=== PATIENT | female | born 1970 | race Caucasian/White ===

== ENCOUNTER 2019-02-07 15:18 | Outpatient (REF) | payer MEDICAID, SELFPAY ==
[2019-02-07 19:11] LABS: TSH (W/Ref FT4) 5.12 uIU/mL (0.358-3.74)
[2019-02-07 20:02] LABS: FREE T4 1.06 ng/dL (0.76-1.46)
== END 2019-02-07 15:38 ==
LOC: NCHCN 15:18
PROVIDERS: PCP Nurse Practitioner Family; Visit Provider Nurse Practitioner Family
DX: E03.9 Hypothyroidism, unspecified (principal)
CPT/HCPCS: 84439; 84443

== ENCOUNTER 2019-02-16 00:22 | Outpatient (CLI) | payer MEDICAID, SELFPAY ==
--- NOTE | 2019-02-16 11:27 | DI.US_ITS ---
SYMPTOMS/DIAGNOSIS: ENLARGED THYROID, E04.9, ? GOITER OR MALIGNANCY THYROID ULTRASOUND: The right thyroid lobe measures 4.7 x 2.3 x 2.2 cm. The isthmus measures 4.6 mm in thickness. The left thyroid lobe measures 5.7 x 3.0 x 3.5 cm. In the right thyroid lobe adjacent to the isthmus, there is a 9 x 9 x 6 mm solid avascular nodule. In the left thyroid lobe, there is a 3.7 x 2.9 x 2.6 cm hyperechoic heterogenous mildly vascular nodule. The entire thyroid gland has an acoustically heterogeneous appearance. SUMMARY: A 3.7 x 2.9 x 2.6 cm hyperechoic heterogeneous mildly vascular left thyroid nodule is demonstrated. Given the size of this lesion, further assessment with a biopsy is suggested.
== END 2019-02-16 00:42 ==
PROVIDERS: PCP Nurse Practitioner Family; Visit Provider Nurse Practitioner Family
DX: E04.1 Nontoxic single thyroid nodule (principal); E04.8 Other specified nontoxic goiter
CPT/HCPCS: 76536

== ENCOUNTER 2019-03-01 11:24 | Outpatient (REF) | payer MEDICAID, SELFPAY ==
[2019-03-01 20:18] LABS: TSH (W/Ref FT4) 4.26 uIU/mL (0.358-3.74)
[2019-03-01 20:49] LABS: FREE T4 0.93 ng/dL (0.76-1.46)
== END 2019-03-01 11:44 ==
LOC: NCHCN 11:24
PROVIDERS: PCP Nurse Practitioner Family; Visit Provider Nurse Practitioner Family
DX: E03.9 Hypothyroidism, unspecified (principal)
CPT/HCPCS: 84439; 84443

== ENCOUNTER 2021-03-20 15:54 | Outpatient (REF) | payer MEDICAID, SELFPAY ==
[2021-03-20 19:19] LABS: HCT 47.4 % (36.0-46.0); HGB 15.7 g/dL (11.2-15.7); MCH 30.1 pg (27.0-33.0); MCHC 33.1 % (32.0-36.0); MCV 90.8 fL (80-95); MPV 11.3 fL (8.0-11.0); Platelet Count 352 10^3/uL (130-400); RBC 5.22 10^6/uL (3.93-5.22); RDW 13.3 % (11.7-14.6); RDW-SD 44.6 fL; WBC 11.94 10^3/uL (4.4-10.8)
[2021-03-20 19:32] LABS: ESR 41 mm//hr (0-20)
[2021-03-20 19:58] LABS: ALT 25 U/L (14-59); AST 13 U/L (15-37); Albumin 3.4 g/dL (3.4-5.0); Alkaline Phosphatase 92 U/L (46-116); Anion Gap 9.5 mmol/L (3-11); BUN 14 mg/dL (7-18); Bilirubin, Total 0.2 mg/dL (0.2-1.0); CO2 27.5 mmol/L (21.0-32.0); CREATININE 0.7 mg/dL (0.55-1.02); Calcium 8.8 mg/dL (8.5-10.1); Chloride 106 mmol/L (98-107); Cholesterol 273 mg/dL (<200); Glucose 105 mg/dL (74-106); HDL Cholesterol 27 mg/dL (40-60); Potassium 4.5 mmol/L (3.5-5.1); Sodium 143 mmol/L (136-145); TSH (W/Ref FT4) 0.25 uIU/mL (0.36-3.74); Total Protein 7.3 g/dL (6.4-8.2); Triglyceride 484 mg/dL (<150)
[2021-03-20 20:11] LABS: LDL CHOLESTEROL 175 mg/dL (<100)
[2021-03-20 20:37] LABS: C-Reactive Protein 2.87 mg/dL (0.0-0.3); FREE T4 1.27 ng/dL (0.76-1.46)
[2021-03-21 16:36] LABS: Rheumatoid Factor <8.6 IU/mL (<12.0)
[2021-03-23 22:08] LABS: Anaplasma phagocytophilum Negative (Negative); B. miyamotoi PCR Negative (Negative); Babesia divergens/MO-1 Negative (Negative); Babesia duncani Negative (Negative); Babesia microti Negative (Negative); Ehrlichia chaffeensis Negative (Negative); Ehrlichia ewingii/canis Negative (Negative); Ehrlichia muris eauclairensis Negative (Negative)
[2021-03-24 10:39] LABS: Hepatitis C Ab w Rflx HCV PCR Negative (Negative)
[2021-03-24 10:52] LABS: Lyme Ab w Rflx to Lyme Confirm Negative (Negative)
[2021-03-24 11:02] LABS: HIV-1/2 Ag & Ab Screen Negative (Negative)
[2021-03-24 15:07] LABS: ANA Interpretation Positive (Negative); ANA Titer Pattern 1:320 Speckled
== END 2021-03-20 15:55 | disposition home or self-care (01) ==
LOC: NCHCN 15:54
PROVIDERS: PCP Nurse Practitioner Family; Visit Provider Nurse Practitioner Family
DX: Z85.850 Personal history of malignant neoplasm of thyroid (principal); Z11.4 Encounter for screening for human immunodeficiency virus [HIV]; Z11.59 Encounter for screening for other viral diseases; Z13.220 Encounter for screening for lipoid disorders; R53.83 Other fatigue; Z68.41 Body mass index [BMI] 40.0-44.9, adult; M25.59 Pain in other specified joint
CPT/HCPCS: 80053; 80061; 83721; 85027; 85652; 86803; 87389; 87798; 84439; 84443; 86038; 86140; 86431; 86618

== ENCOUNTER 2021-12-30 08:06 | Outpatient (CLI) | payer MEDICAID, SELFPAY ==
--- NOTE | 2021-12-30 08:00 | RT.EKG_ITS ---
APPROVED REPORT Exam: Resting ECG Reason for Exam: Afib Patient Location: O HR:87 bpm ECG Measurements Heart Rate 87 AXIS WA 154 P 28 QRSd 101 QRS -1 QT 397 T 13 QTc 478 Conclusion Sinus rhythm...normal P axis, V-rate 50- 99 Probable left ventricular Normal Electrocardiogram
== END 2021-12-30 08:07 | disposition home or self-care (01) ==
LOC: DI.CARD 08:09
PROVIDERS: PCP Nurse Practitioner Family; Visit Provider Internal Medicine Cardiovascular Disease
DX: I48.21 Permanent atrial fibrillation (principal)
CPT/HCPCS: 93010

== ENCOUNTER 2022-03-27 01:13 | Outpatient (REF) | payer MEDICAID, SELFPAY ==
[2022-03-27 15:48] LABS: ALT 20 U/L (14-59); AST 15 U/L (15-37); Albumin 3.5 g/dL (3.4-5.0); Alkaline Phosphatase 88 U/L (46-116); Anion Gap 9.1 mmol/L (3-11); BUN 13 mg/dL (7-18); Bilirubin, Total 0.3 mg/dL (0.2-1.0); CO2 26.9 mmol/L (21.0-32.0); CREATININE 0.7 mg/dL (0.55-1.02); Calcium 8.6 mg/dL (8.5-10.1); Calculated LDL 94 mg/dL (<100); Chloride 104 mmol/L (98-107); Cholesterol 181 mg/dL (<200); Glucose 96 mg/dL (74-106); HDL Cholesterol 39 mg/dL (40-60); Potassium 4.3 mmol/L (3.5-5.1); Sodium 140 mmol/L (136-145); TSH 0.13 uIU/mL (0.36-3.74); Total Protein 7.3 g/dL (6.4-8.2); Triglyceride 244 mg/dL (<150)
== END 2022-03-27 01:14 | disposition home or self-care (01) ==
LOC: NCHCN 01:13
PROVIDERS: PCP Nurse Practitioner Family; Visit Provider Physician Assistant Medical
DX: E78.5 Hyperlipidemia, unspecified (principal); Z13.1 Encounter for screening for diabetes mellitus; Z85.850 Personal history of malignant neoplasm of thyroid
CPT/HCPCS: 80053; 80061; 83036; 84443

== ENCOUNTER 2022-10-12 15:15 | Outpatient (REF) | payer MEDICAID, SELFPAY ==
[2022-10-12 19:43] LABS: Hemoglobin A1C 6.1 % (<5.7)
[2022-10-12 19:45] LABS: TSH 1.66 uIU/mL (0.36-3.74)
== END 2022-10-12 15:16 | disposition home or self-care (01) ==
LOC: NCHCN 15:15
PROVIDERS: PCP Nurse Practitioner Family; Visit Provider Physician Assistant Medical
DX: R73.03 Prediabetes (principal); Z85.850 Personal history of malignant neoplasm of thyroid
CPT/HCPCS: 83036; 84443

== ENCOUNTER 2022-12-03 04:17 | Outpatient (CLI) | payer OTHER, SELFPAY ==
--- NOTE | 2022-12-04 14:38 | W.PFT ---
Date of service: 12/03/22 Time of Service: 11:27 Pulmonary Function Test Result Requesting Provider Nena Alfonso Indications: COPD Note: 6 Minute Walk Test Distance walked: 1000 feet Desaturations: No desaturations Heart rate changes: No significant heart rate changes Recommendation: No supplemental O2 needed with walking. Normal 6MWT distance. Clemencia Gilbert MD Pulmonary & Critical Care Medicine Clinical Correlation therefore is recommended.
== END 2022-12-03 04:18 | disposition home or self-care (01) ==
PROVIDERS: Visit Provider Pediatrics Pediatric Rheumatology
DX: J44.9 Chronic obstructive pulmonary disease, unspecified (principal)
CPT/HCPCS: 94618

== ENCOUNTER 2023-06-09 17:04 | Outpatient (REF) | payer MEDICAID, SELFPAY ==
[2023-06-09 20:20] LABS: Abs Immature Grans 0.04 10^3/uL (0.0-0.06); Absolute Lymphocyte Count 3.26 10^3/uL (1.2-3.4); Absolute Monocyte Count 0.56 10^3/uL (0.1-0.8); Absolute Neutrophil Count 6.86 10^3/uL (1.2-6.7); Basophils % 0.5; Eosinophils % 2.4; HCT 46.5 % (36.0-46.0); HGB 15.4 g/dL (11.2-15.7); Immature Grans % 0.4; Lymphocytes % 29.5; MCH 30.4 pg (27.0-33.0); MCHC 33.1 % (32.0-36.0); MCV 92 fL (80-95); MPV 11.3 fL (8.0-11.0); Monocytes % 5.1; Neutrophils % 62.1; Platelet Count 274 10^3/uL (130-400); RBC 5.07 10^6/uL (3.93-5.22); RDW 13.6 % (11.7-14.6); RDW-SD 46.2 fL; WBC 11.04 10^3/uL (4.4-10.8)
[2023-06-09 20:22] LABS: Absolute Basophil Count 0.06 10^3/uL (0.0-0.2); Absolute Eosinophil Count 0.26 10^3/uL (0.0-0.7)
[2023-06-09 20:40] LABS: ALT 20 U/L (14-59); AST 20 U/L (15-37); Albumin 3.2 g/dL (3.4-5.0); Alkaline Phosphatase 80 U/L (46-116); Anion Gap 8.7 mmol/L (3-11); BUN 10 mg/dL (7-18); Bilirubin, Total 0.2 mg/dL (0.2-1.0); CO2 27.3 mmol/L (21.0-32.0); CREATININE 0.7 mg/dL (0.55-1.02); Calcium 8.7 mg/dL (8.5-10.1); Calculated LDL 62 mg/dL (<100); Chloride 105 mmol/L (98-107); Cholesterol 166 mg/dL (<200); Estimated GFR 103.35 (mL/min/1.73m2); Glucose 116 mg/dL (74-106); HDL Cholesterol 35 mg/dL (40-60); Potassium 4.2 mmol/L (3.5-5.1); Sodium 141 mmol/L (136-145); TSH 1.18 uIU/mL (0.36-3.74); Total Protein 7.3 g/dL (6.4-8.2); Triglyceride 346 mg/dL (<150)
== END 2023-06-09 17:05 | disposition home or self-care (01) ==
LOC: NCHCN 17:04
PROVIDERS: Visit Provider Physician Assistant Medical
DX: K76.0 Fatty (change of) liver, not elsewhere classified (principal); E78.2 Mixed hyperlipidemia; R73.03 Prediabetes
CPT/HCPCS: 80053; 80061; 83036; 84443; 85025

== ENCOUNTER 2025-10-15 15:08 | Outpatient (REF) | payer MEDICAID, SELFPAY ==
[2025-10-15 19:32] LABS: TSH (W/Ref FT4) 1.29 uIU/mL (0.55-4.78); Vitamin D 25 Total 31 ng/mL (30-100)
[2025-10-15 19:34] LABS: ALT 14 U/L (10-49); AST 15 U/L (<34); Albumin 4.1 g/dL (3.4-5.0); Alkaline Phosphatase 72 U/L (46-116); Anion Gap 4.6 mmol/L (3-11); BUN 15 mg/dL (9-23); Bilirubin, Total 0.20 mg/dL (0.2-1.2); CO2 27.4 mmol/L (20.0-31.0); Calcium 8.6 mg/dL (8.3-10.6); Chloride 109 mmol/L (98-107); Cholesterol 174 mg/dL (<200); Glucose 154 mg/dL (74-106); HDL Cholesterol 39 mg/dL (>40); Potassium 3.6 mmol/L (3.5-5.1); Sodium 141 mmol/L (136-145); Total Protein 7.1 g/dL (5.7-8.2)
[2025-10-15 20:12] LABS: Hemoglobin A1C 5.9 % (<5.7)
== END 2025-10-15 15:09 | disposition home or self-care (01) ==
LOC: NCHCN 15:08
PROVIDERS: Visit Provider Physician Assistant Medical
DX: Z13.1 Encounter for screening for diabetes mellitus (principal); Z85.850 Personal history of malignant neoplasm of thyroid; E55.9 Vitamin D deficiency, unspecified; E78.5 Hyperlipidemia, unspecified
CPT/HCPCS: 80053; 80061; 82306; 83036; 84443